=== PATIENT | female | born 1985 | race Caucasian/White ===

== ENCOUNTER 2020-05-31 11:39 | Emergency (ER) | payer BC | END 2020-05-31 12:24 | disposition home or self-care (01) | LOC: JVIRT 11:39 | DX: Z03.818 Encounter for observation for suspected exposure to other biological agents ruled out (principal) | CPT/HCPCS: C9803; G2012-GT; U0003 ==

== ENCOUNTER 2020-10-09 23:18 | Emergency (ER) | payer BC, OTHER ==
[2020-10-09 23:29] VITALS: BP 115/77; PULSE 76; TEMP 98.8; BMI 22.6
== END 2020-10-09 23:51 | disposition home or self-care (01) ==
LOC: FER 23:18
DX: K13.79 Other lesions of oral mucosa (principal)
CPT/HCPCS: 99281-25

== ENCOUNTER 2021-01-22 00:42 | Emergency (ER) | payer OTHER ==
[2021-01-22 00:51] VITALS: BP 125/88; PULSE 78; TEMP 99.3; BMI 24.4
[2021-01-22] MEDS ORDERED: ACETAMINOPHEN 500 MG TABLET (FP) PO ONE (01:05)
[2021-01-22] MEDS ORDERED: ACETAMINOPHEN 500 MG TABLET (FP) ONE (01:07)
== END 2021-01-22 01:15 | disposition home or self-care (01) ==
LOC: FER 00:42
DX: H60.501 Unspecified acute noninfective otitis externa, right ear (principal); H66.90 Otitis media, unspecified, unspecified ear
CPT/HCPCS: 99283-25

== ENCOUNTER 2021-06-08 17:55 | Emergency (ER) | payer OTHER ==
[2021-06-08 18:02] VITALS: BP 110/70; BMI 24.4
[2021-06-08 18:23] VITALS: PULSE 70; TEMP 98.9
[2021-06-09 14:08] LABS: SARS-CoV-2 NAA Not Detected (Not Detected)
== END 2021-06-08 18:40 | disposition home or self-care (01) ==
LOC: FER 17:55
DX: Z20.822 Contact with and (suspected) exposure to COVID-19 (principal)
CPT/HCPCS: 99283-25; C9803; U0003; U0005

== ENCOUNTER 2024-02-15 18:04 | Emergency (ER) | payer BC, OTHER ==
[2024-02-15 18:20] VITALS: BP 111/77; PULSE 87; RESP 12; TEMP 99.2; BMI 22.4
[2024-02-15] MEDS: LACTATED RINGERS SOLUTION 1,000 ML/1,000 ML INFUS.BAG IV SCH (19:05)
[2024-02-15 20:00] LABS: HEMATOCRIT 39.9 % (32.4-45.2); HEMOGLOBIN 12.8 G/dL (10.7-15.3); MCH 29.7 pg (25.7-33.7); MCHC 32.1 g/dl (32.0-36.0); MEAN CELL VOLUME 92.5 fl (80-96); MEAN PLT VOLUME 8.1 fl (7.5-11.1); PLATELET COUNT 296.7 10^3/uL (134-434); RBC 4.31 10^6/uL (3.60-5.2); RDW 13.9 % (11.6-15.6)
[2024-02-15 20:16] LABS: ALBUMIN 4.2 g/dl (3.4-5.0); ALK PHOS 64 U/L (45-117); ANION GAP 9 mmol/L (4-13); BILIRUBIN,TOTAL 0.3 mg/dl (0.2-1); CALCIUM 9.3 mg/dl (8.5-10.1); CHLORIDE 100 mmol/L (98-107); CO2 25 mmol/L (21-32); CREATININE 0.6 mg/dl (0.6-1.3); GLUCOSE,RANDOM 85 mg/dl (74-106); MAGNESIUM 1.8 mg/dL (1.8-2.4); PHOSPHOROUS 3.4 (2.5-4.9); POTASSIUM 3.5 mmol/L (3.5-5.1); SGOT/AST 14 U/L (15-37); SGPT/ALT 9 U/L (7-52); SODIUM 134 mmol/L (136-145); TOT PROT 7.3 g/dl (6.4-8.2)
[2024-02-15 20:43] LABS: PLATELET ESTIMATE ADEQUATE
[2024-02-15] MEDS ORDERED: SIMETHICONE 80 MG TAB.CHEW (FP) ONE (21:11)
[2024-02-15] MEDS: SIMETHICONE 40 MG/0.6 ML BOTTLE PO STA (21:14)
== END 2024-02-15 21:18 | disposition home or self-care (01) ==
LOC: FER 18:04
DX: O26.891 Other specified pregnancy related conditions, first trimester (principal); R10.33 Periumbilical pain; Z3A.01 Less than 8 weeks gestation of pregnancy
CPT/HCPCS: 36415; 76817-TC; 80053; 81003; 81015; 83735; 84100; 84702; 85027; 86850; 86900; 86901; 87077; 87086; 87186; 99284-25